=== PATIENT | female | born 1980 | race Caucasian/White ===

== ENCOUNTER 2023-03-26 09:28 | Outpatient (CLI) | payer BC, SELFPAY ==
--- NOTE | ~2023-03-26 | MR_ITS ---
EXAMINATION: MR cervical spine wo con DATE: 03/26/2023 10:16 INDICATION: Paresthesias. Spinal stenosis. Neck pain. TECHNIQUE: Magnetic resonance imaging (MRI) of the cervical spine was performed without intravenous c ontrast. Sequences included sagittal T2-weighted FSE, sagittal T2-weighted FS FSE, sagittal T1-weight ed FSE, axial MERGE, and axial T2-weighted FSE. COMPARISON: None FINDINGS: There is mild kyphosis of cervical spine. Vertebral body heights are normal. There is mildl y decreased disc height at C5-C6 and moderately decreased disc height at C6-C7. The spinal cord signa l intensity is normal. The following disc levels are specifically discussed: C2-C3: The disc does not extend beyond the endplate margin. There is no uncovertebral joint osteoarth ritis. There is mild bilateral facet joint osteoarthritis. There is no neural foraminal stenosis. The re is no central canal stenosis. C3-C4: There is a right central protrusion. There is mild bilateral uncovertebral joint osteoarthriti s. There is no facet joint osteoarthritis. There is no neural foraminal stenosis. There is no central canal stenosis. C4-C5: There is a central protrusion. There is mild bilateral uncovertebral joint osteoarthritis. The re is no facet joint osteoarthritis. There is no neural foraminal stenosis. There is no central canal stenosis. C5-C6: The disc is bulging with superimposed central extrusion. There is moderate bilateral uncoverte bral joint osteoarthritis. There is no facet joint osteoarthritis. There is mild bilateral neural for aminal stenosis. There is mild central canal stenosis with ventral indentation of the spinal cord. C6-C7: The disc is bulging with superimposed central and right foraminal extrusion. There is severe r ight and moderate left uncovertebral joint osteoarthritis. There is no facet joint osteoarthritis. Th ere is moderate right and mild left neural foraminal stenosis. There is moderate central canal stenos is with ventral and dorsal indentation of the spinal cord. C7-T1: There is a central protrusion. There is no uncovertebral joint osteoarthritis. There is mild b ilateral facet joint osteoarthritis. There is mild bilateral neural foraminal stenosis. There is no c entral canal stenosis. IMPRESSION: 1. Moderate cervical spondylosis. Reviewed, dictated and finalized at location A.
== END 2023-03-26 09:29 ==
PROVIDERS: PCP Family Medicine; Visit Provider Family Medicine
DX: R20.2 Paresthesia of skin (principal); M48.02 Spinal stenosis, cervical region; R73.9 Hyperglycemia, unspecified; M47.892 Other spondylosis, cervical region
CPT/HCPCS: 72141

== ENCOUNTER 2023-08-22 08:30 | Outpatient (CLI) | payer BC, SELFPAY ==
--- NOTE | 2023-08-22 08:38 | ECG_ITS ---
Measurements Intervals [place] Rate: 84 P: 43 CT: 146 QRS: 89 QRSD: 86 T: 21 QT: 360 QTc: 428 Interpretive Statements SINUS RHYTHM BASELINE ARTIFACT NONSPECIFIC T-WAVE ABNORMALITY BORDERLINE ECG NO PREVIOUS ECG AVAILABLE FOR COMPARISON Electronically Signed On 08-22-2023 18:26:18 [employer] by Kwame Almanzar M.D.
[2023-08-22 09:26] LABS: Hematocrit 40.5 % (37.0-47.0); Hemoglobin 13.2 g/dL (12.0-15.0); Mean Corpuscular HGB Conc 32.6 g/dl (32-36); Mean Platelet Volume 9.8 fl (7.4-10.4); Platelet Count Result 361 k/mm3 (150-375); Red Cell Distribution Width 12.5 % (11.5-14.5); White Blood Count 7.8 K/mm3 (4.5-10.0)
[2023-08-22 09:30] LABS: Appearance Urine Cloudy (Clear); Bacteria Urine 1+ /hpf; Bilirubin Urine Negative (Negative); Color Urine Yellow (Yellow); Glucose Urine UA Negative (Negative); Ketones Urine Trace mg/dL (Negative); Leukocyte Esterase Ur 1+ LEU/UL (Negative); Nitrate Urine Negative (Negative); Protein Urine Negative (Negative); Specific Grav Ur 1.023 (1.001-1.035); Squamous Epithelial Cell Urine Few /hpf (Few); WBC Urine 21-50 /hpf
[2023-08-22 09:32] LABS: Add Urine Microscopic? YES
[2023-08-22 09:36] LABS: INR 0.9
[2023-08-22 09:37] LABS: Partial Thromboplastin Time 24.6 SECONDS (22.3-36.8)
[2023-08-22 09:39] LABS: Anion Gap 6 mmol/L (8-16); Blood Urea Nitrogen 10 mg/dL (7-17); Calcium 9.4 mg/dL (8.4-10.2); Carbon Dioxide 27 mmol/L (22-30); Chloride 103 mmol/L (98-107); Estimated Glomerular Filt Rate > 60; Glucose 95 mg/dL (65-110); Potassium 4.2 mmol/L (3.4-5.0); Sodium 136 mmol/L (137-145)
[2023-08-22 09:40] LABS: Hemoglobin A1C 4.7 % (<5.7)
== END 2023-08-22 08:31 | disposition home or self-care (01) ==
LOC: ANHSURGERY 08:35
PROVIDERS: PCP Family Medicine; Visit Provider Neurological Surgery
DX: Z01.818 Encounter for other preprocedural examination (principal); M50.20 Other cervical disc displacement, unspecified cervical region; R73.03 Prediabetes; R94.31 Abnormal electrocardiogram [ECG] [EKG]
CPT/HCPCS: 36415; 80048; 81001; 83036; 85027; 85610; 85730; 86850; 86900; 86901; 87086; 93005

== ENCOUNTER 2023-08-23 01:00 | Day surgery (SDC) | payer BC, SELFPAY ==
[2023-08-12 11:41] VITALS: BMI 24.9
--- NOTE | 2023-08-12 11:46 | PC.NURSE ---
Report to the Outpatient Waiting Room, entrance under the green pavilion located off [facility], at time 6:00 on date 08/23/23. Planned Procedure Time: 7:30. Time changes happen often and if your time is changed the preop area will call you the afternoon before. - You and your visitor will be asked to self-screen and do not enter if you have any COVID symptoms. - A mask is optional within the hospital at this time. Patients may have clear liquids (water, carbonated beverages, clear teas, apple juice) until 3 hours prior to surgery (4:30) with a maximum of 20 ounces. - No food from midnight until time of surgery Take the following medications with a SIP of water the morning of surgery: NONE DO NOT STOP ANY OF YOUR OTHER PRESCRIPTION MEDICATIONS PRIOR TO SURGERY ?EXCEPT THE FOLLOWING Medications to discontinue per physician: VITAMINS/SUPPLEMENTS Date to take last dose: 08/19/23 Please no make-up, nail lithuanian, hairspray, perfume, deodorant, or body powder the day of surgery. No jewelry (including any body piercings) or valuables the day of surgery, leave them at home. Please take a shower or bath the night before, or the morning of, surgery with an antibacterial soap. Wear comfortable, loose fitting clothing. - Jewelry must be removed prior to entering the operating room. Rings and piercings that are not removed may be cut off. - The hospital will not accept responsibility for valuables. - Please leave all valuables, including medications, at home the day of surgery. If you are going home after surgery, a licensed refrigerated national truck driver must drive you home. - NO public transportation without another adult if you receive anesthesia. - We recommend that an adult stay with you for 24 hours following discharge. - We also recommend that you do not drive, make important decision, drink alcoholic beverages, or take any drugs that were not prescribed by your health care provider for at least 24 hours after your discharge time. Follow any additional instructions given to you from your surgeon. If you or anyone in your household have experienced Covid symptoms in the past week, please notify your surgeon or the nurse liaison at the phone number below for possible testing. Telephone instructions given to PT - ZACHERY LLANOS and asked if any additional questions and then verbalized understanding. Patient advised to call surgeon office or pre surgery nurse liaison [phone] if any additional questions.
[2023-08-23] VITALS (13 sets, daily range): BP systolic 104–127; BP diastolic 55–84; PULSE 74–115; RESP 12–20; TEMP 36.3–36.4; O2SAT 95–100
--- NOTE | ~2023-08-23 | XR_ITS ---
EXAMINATION: XR fluoroscopy no charge INDICATION: Anterior cervical discectomy TECHNIQUE: Two lateral views of the cervical spine are provided. Total fluoroscopic time was 3.4 seco nds. COMPARISON: None available FINDINGS: The provided lateral views of the cervical spine demonstrate changes of anterior fusion fro m C5 through C7. Bone alignment is normal. Please refer to procedure note for full details. IMPRESSION: 1. Please refer to procedure note for full details. Reviewed, dictated and finalized at location L. HER ANCHOR
[2023-08-23 06:51] LABS: Glucose Point of Care 84 mg/dl (65-105)
[2023-08-23] MEDS: LACTATED RINGERS 1,000 ML 30 ML IV CONT ×3 (07:00→11:51)
--- NOTE | 2023-08-23 07:31 | WPDANESEPPF ---
Anes - Initial Pre Proc Eval Procedure: Operation Date: 08/23/23 07:30 Proposed Procedures p C5-6, C6-7 Anterior Cervical Discectomy and Fusion - Hiro Higgins MD Date/Time: 08/23/23 07:31 Surgeon: Hiro Higgins MD Pre Op Diagnosis: C5-6 C6-7 Herniated Nucleus Pulposis Patient Data Age: 43 Gender: F Height: 1.75 m Weight: 76.5 kg Allergies Allergy/AdvReac Type Severity Reaction Status Date / Time No Known Allergies Allergy Unknown Verified 08/12/23 11:37 Home Medications Medication Instructions Recorded Confirmed Type fluoxetine 40 mg capsule 80 mg PO HS 08/12/23 08/12/23 History folic acid 1 mg tablet 1 mg PO HS 08/12/23 08/12/23 History lamotrigine 25 mg tablet 10 mg PO HS 08/12/23 08/12/23 History metformin 500 mg tablet 500 mg PO HS 08/12/23 08/12/23 History norethindrone-ethinyl estradiol 1 tablet PO HS 08/12/23 08/12/23 History triphasic 0.5/1/0.5 mg-35 mcg tablet (Maria [place] Carmen (28)) semaglutide 1 mg/dose (4 mg/3 mL) 1 mg subcut WEEKLY 08/12/23 08/12/23 History subcutaneous pen injector (Ozempic) Laboratory Tests 08/23/23 06:48 POC Capillary Glucose 84 mg/dl (65-105) Patient hx anesthesia problems: none Family hx anesthesia problems: none Results Review: All pre-operative results and documents have been reviewed as part of the pre-operative evaluation. [facility] Past Medical History Medical History Anxiety Surgical History Surgical History (Updated 05/09/23 @ 14:55 by NATALIE Goodrich) History of tonsillectomy Social History Social History Smoking status: Never smoker Alcohol intake: never Substance use: never Substance use type: does not use Lack of Transportation: No Lack of Food: Never True Current Housing: I Have Housing Concerned About Future Housing: No Difficulty Paying Gas/Electric Bills: No Difficulty Paying for Meds: No Currently Unemployed: No Education: High School Diploma/GED Difficulty w/ Childcare or Family Care: No Living arrangements: with family Spiritual care concerns: No Anes - Eval Final PreProcedure Day of Procedure 08/23/23 07:31 Patient weight: obese Heart: regular rate and rhythm Lungs: clear to auscultation Airway: Mallampati scale class II Neurological: alert and oriented Last oral intake: >/= 8 hours ASA classification: III Emergent: no Anesthetic plan: proceed Anesthesia type and monitoring: general ETT and standard monitoring Results Review: All pre-operative results and documents have been reviewed as part of the pre-operative evaluation. Informed Consent: The patient's anesthetic plan and its attendant risks and benefits were discussed with the patient/family/POA. Questions were solicited and answers provided to the satisfaction of the patient/family/POA.
--- NOTE | 2023-08-23 07:36 | PM.IMHP ---
H&P: HPI History of Present Illness Date/Time: 08/23/23 07:36 Chief Complaint: Neck and arm pain Narrative: Mirela Landeros is a 42-year-old female who presents to the office today as a new patient for pain, numbness, and tingling in her neck and bilateral arms. This has been going on for years and is progressive. She has pain in her neck radiating down her bilateral arms. The pain is now starting to radiate down into her back as well which is fairly new. The pain in her neck seems to be slightly worse on the left compared to the right whereas the pain is the same in both arms and is not worse on one side versus the other. She reports constant tingling in her bilateral arms down through her middle finger on both sides that feels like her arms are falling asleep. She states that her arms go numb when she lays flat on her back but unlike the tingling, the numbness is not there all the time. She notices diffuse weakness throughout her arms and hands that is somewhat non-specific. She states that she can't electric relay tester anything because of weakness in her upper extremities/hands but she does not notice any specific muscle group weakness of either upper extremity otherwise. She is having trouble sleeping at night because of her inability to lay flat and states that she has to sleep in a recliner and has had to for years. She is not having any trouble walking or problems with her balance. She has seen a plate painter and has tried epidural steroid injections, a nerve block, and physical therapy without benefit temporary or otherwise. She is limited and distracted daily by the discomfort in her neck and upper extremities to the extent that she would consider surgical intervention if offered to her at this point in time. She is not having any new bowel or bladder difficulty or other new constitutional problems at this time. Review of Systems Review of Systems: Review of Systems Const All systems reviewed & are unremarkable except as noted in HPI and below Denies chills, Denies fever(s), Denies frequent falls, Reports weakness, Denies weight gain and Denies weight loss Eyes Denies change in vision and Denies diplopia ENT Reports neck pain and Denies disequilibrium Card Denies chest pain and Denies dyspnea Resp Denies cough and Denies dyspnea GI Denies abdominal pain, Denies change in bowel habits, Denies fecal incontinence and Denies vomiting Denies hematuria, Denies urinary frequency, Denies difficulty voiding, Denies dysuria, Denies urinary incontinence, Denies urinary hesitancy and Denies urinary urgency Musc Reports as per HPI, Denies abnormal gait, Reports neck pain, Reports numbness and Reports tingling Skin/ Breast Reports system reviewed and no additional complaints, except as documented Neuro Reports as per HPI, Denies abnormal gait, Denies burning sensations, Denies frequent falls, Reports numbness, Reports radicular pain, Reports tingling, Denies disequilibrium and Reports weakness Psych Reports no additional complaints, Denies depression and Denies hopelessness Endo Reports no additional complaints and Denies polyuria Weston/ Lymph Reports no additional complaints Aller/ Immun Reports no additional complaints PMFSH Past Medical History Medical History Anxiety Surgical History Surgical History (Updated 05/09/23 @ 14:55 by NATALIE Goodrich) History of tonsillectomy Social History Social History Smoking status: Never smoker Alcohol intake: never Substance use: never Substance use type: does not use Lack of Transportation: No Lack of Food: Never True Current Housing: I Have Housing Concerned About Future Housing: No Difficulty Paying Gas/Electric Bills: No Difficulty Paying for Meds: No Currently Unemployed: No Education: High School Diploma/GED Difficulty w/ Childcare or Fam
[2023-08-23] MEDS: ceFAZolin 2 GM/D5W 50 ML 2 GM/50 ML BAG IVPB ×2 (07:39)
--- NOTE | 2023-08-23 07:39 | PM.IMHP ---
H&P: HPI History of Present Illness Date/Time: 08/23/23 07:39 Chief Complaint: arm and neck pain Narrative: Mirela Landeros is a 42-year-old female who presents to the office today as a new patient for pain, numbness, and tingling in her neck and bilateral arms. This has been going on for years and is progressive. She has pain in her neck radiating down her bilateral arms. The pain is now starting to radiate down into her back as well which is fairly new. The pain in her neck seems to be slightly worse on the left compared to the right whereas the pain is the same in both arms and is not worse on one side versus the other. She reports constant tingling in her bilateral arms down through her middle finger on both sides that feels like her arms are falling asleep. She states that her arms go numb when she lays flat on her back but unlike the tingling, the numbness is not there all the time. She notices diffuse weakness throughout her arms and hands that is somewhat non-specific. 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 She is having trouble sleeping at night because of her inability to lay flat and states that she has to sleep in a recliner and has had to for years. She is not having any trouble walking or problems with her balance. She has seen a bait painter and has tried epidural steroid injections, a nerve block, and physical therapy without benefit temporary or otherwise. She is limited and distracted daily by the discomfort in her neck and upper extremities to the extent that she would consider surgical intervention if offered to her at this point in time. She is not having any new bowel or bladder difficulty or other new constitutional problems at this time. Review of Systems Review of Systems: Const All systems reviewed & are unremarkable except as noted in HPI and below Denies chills, Denies fever(s), Denies frequent falls, Reports weakness, Denies weight gain and Denies weight loss Eyes Denies change in vision and Denies diplopia ENT Reports neck pain and Denies disequilibrium Card Denies chest pain and Denies dyspnea Resp Denies cough and Denies dyspnea GI Denies abdominal pain, Denies change in bowel habits, Denies fecal incontinence and Denies vomiting Denies hematuria, Denies urinary frequency, Denies difficulty voiding, Denies dysuria, Denies urinary incontinence, Denies urinary hesitancy and Denies urinary urgency Musc Reports as per HPI, Denies abnormal gait, Reports neck pain, Reports numbness and Reports tingling Skin/ Breast Reports system reviewed and no additional complaints, except as documented Neuro Reports as per HPI, Denies abnormal gait, Denies burning sensations, Denies frequent falls, Reports numbness, Reports radicular pain, Reports tingling, Denies disequilibrium and Reports weakness Psych Reports no additional complaints, Denies depression and Denies hopelessness Endo Reports no additional complaints and Denies polyuria Weston/ Lymph Reports no additional complaints Aller/ Immun Reports no additional complaints PMFSH Past Medical History Medical History Anxiety Surgical History Surgical History (Updated 05/09/23 @ 14:55 by NATALIE Goodrich) History of tonsillectomy Social History Social History Smoking status: Never smoker Alcohol intake: never Substance use: never Substance use type: does not use Lack of Transportation: No Lack of Food: Never True Current Housing: I Have Housing Concerned About Future Housing: No Difficulty Paying Gas/Electric Bills: No Difficulty Paying for Meds: No Currently Unemployed: No Education: High School Diploma/GED Difficulty w/ Childcare or Family Care: No Li
--- NOTE | 2023-08-23 07:41 | WPDHPUPDATE1 ---
History and Physical Update Update Date/Time: 08/23/23 07:41 History and Physical has been reviewed, including an updated exam of the patient. There are NO changes in the patient's condition. Risks, benefits, and alternatives have been discussed and questions answered. Patient agrees to proceed with procedure.
[2023-08-23] MEDS: LIDO 1%/EPINEPHRINE 1:100,000 20 ML VIAL 10 ML INFILTRATE (08:49)
[2023-08-23 10:14] LABS: Glucose Point of Care 131 mg/dl (65-105)
--- NOTE | 2023-08-23 10:31 | W.PM.PROC2 ---
Procedure Note - Detailed Date of Procedure 08/23/23 Pre-op Diagnosis C5-6 C6-7 Herniated Nucleus Pulposis Post-op Diagnosis Same Procedure Performed C5-6 and C6-7 complete diskectomy and neural foraminotomy, C5-6 and C6-7 interbody arthrodesis utilizing peek interbody device and I factor and local autograft. C5-6 and C6-7 anterior cervical plating with locking plate and screws. Use of the operating microscope. Surgeon Hiro Higgins MD Anesthesia General Description of Procedure The patient was brought to the operating room in supine position, was sedated, intubated placed under general anesthesia in routine fashion. There of operation on the right side of the neck was examined, marked for incision, prepped and draped in routine sterile fashion. Incision was marked from the midline over the medial aspect of the sternocleidomastoid muscle and curvilinear transverse fashion 3 fingerbreadths above the sternal notch. This area was injected with 0.5% lidocaine with [id number] epinephrine. Intravenous antibiotics given prior to incision. Incision was made with a 10 blade scalpel down to the platysma muscle. The skin was undermined the platysma muscle was divided longitudinally with its fibers using Metzenbaum scissors. A plane was then dissected medial to the sternocleidomastoid muscle down to the anterior aspect of spine using the finger in Metzenbaum scissors. A verifying x-rays obtained to verify the level of operation. The longus colli muscle was dissected free of the anterior aspect of the spine in a subperiosteal plane using Bovie cautery. Shadow Line retractor system was placed. Thad pins were placed into C5 and C7 and distraction placed over both disc spaces simultaneously. Diskectomy and arthrodesis procedures were performed identically at each level. Fifteen blade scalp was used to cut into the disc space along the margin of the bone above and below. Curved curette and pituitary rongeur were used to remove as much cartilaginous endplate and disc material as possible down to the annulus and ligament posteriorly. A Training Amigo[employer] Giuseppe drill was used to bur down the endplates to bleeding cortical flat surfaces as well as to begin a bony foraminotomy bilaterally. Under microscopy curved curette was used to come through the annulus and ligament. A 2. Kerrison punch was used through the annulus, ligament, posterior osteophyte and to complete a bony foraminotomy bilaterally. This was done until a nerve hook could be placed out each foramen to confirm lack compression. Disc herniation was discovered in the subligamentous position at both these levels and was removed during this part of the procedure. Each disc space was sized and a 5 mm interbody device was chosen for C6-7 and a 6 mm device for C5-6. These were filled with local autograft bone and I factor. They were then tamped into the interspace to 110 mm countersink. Lebec pins were removed. A 30 mm anterior plate was chosen placed in position and secured using 614 x 4 mm anterior screws advanced into the locking mechanism plate the [facility]. Locking mechanism was engaged at each screw. A verifying x-rays obtained to verify good position of the instrumentation was confirmed. The wound was then copiously irrigated with bacitracin irrigation all bleeding stopped with bipolar Bovie cautery and Gelfoam thrombin powder. The wound was then closed in layered fashion with 3-0 Vicryl interrupted sutures in the platysma muscle and in the dermis. The skin was closed with a running 4-0 Monocryl subcuticular stitch and dressed with Dermabond. Patient was allowed to wake up the operating room and was taken to the recovery room in stable condition. There were no immediate complications of this operation. All counts were reported correct in the case. Blood loss was 25 cc. The patient was neurologically at her baseline postoperatively. Implants Titanium plate and screws, peek interbody device
[2023-08-23] MEDS: fentaNYL CITRATE INJ (*CRX) 100 MCG/2 ML VIAL 25 MCG IV PUSH ×5 (10:40→12:41)
[2023-08-23] MEDS: ONDANSETRON INJ 4 MG/2 ML VIAL IV PUSH (11:30)
[2023-08-23] MEDS: diphenhydrAMINE HCl INJ 50 MG/ML VIAL 12.5 MG IV PUSH (11:50)
[2023-08-23] MEDS: SCOPOLAMINE 1 MG PATCH 1 PATCH TRANSDERM (11:50)
[2023-08-23] MEDS: oxyCODONE HCL (*CRX) 5 MG TAB IR PO (13:10)
== END 2023-08-23 13:55 | disposition home or self-care (01) ==
PROVIDERS: PCP Family Medicine; Visit Provider Neurological Surgery
PROC: (CPT 63030; principal; 2023-08-23 07:30)
DX: M50.222 Other cervical disc displacement at C5-C6 level (principal); M50.223 Other cervical disc displacement at C6-C7 level; F41.9 Anxiety disorder, unspecified; Z79.84 Long term (current) use of oral hypoglycemic drugs; Z79.85 Long-term (current) use of injectable non-insulin antidiabetic drugs; E66.9 Obesity, unspecified; Z68.25 Body mass index [BMI] 25.0-25.9, adult
CPT/HCPCS: 22551; 22552; 22853 ×2; 20936; 82948; 99199; A9270; C1713; J0690; J1100; J1170; J1200; J2250; J2371; J2405; J2704; J3010; J7120

== ENCOUNTER 2023-11-22 14:09 | Outpatient (CLI) | payer BC, SELFPAY ==
--- NOTE | ~2023-11-22 | XR_ITS ---
EXAMINATION: XR_[id number]_CR DATE: 11/22/2023 14:24 INDICATION: Neck pain. TECHNIQUE: 3 views of cervical spine were obtained. COMPARISON: Cervical spine MRI 03/26/2023 FINDINGS: Bone alignment is normal. There are changes of anterior fusion procedure from C5 to C7 with interbody devices and anterior plate and screws. Vertebral body heights are normal. Intervertebral d isc heights are normal. There is multilevel mild facet joint osteoarthritis. There is mild central ca nal stenosis at C5-C6 and C6-C7. No prevertebral soft tissue swelling. IMPRESSION: 1. Anterior fusion procedure from C5 to C7. 2. Mild cervical spondylosis. Reviewed, dictated and finalized at location A.
== END 2023-11-22 14:10 | disposition home or self-care (01) ==
PROVIDERS: PCP Family Medicine
DX: Z98.1 Arthrodesis status (principal); M47.892 Other spondylosis, cervical region
CPT/HCPCS: 72040